=== PATIENT | male | born 1980 | race Caucasian/White ===

== ENCOUNTER → 2016-04-08 | Outpatient (CLI) | payer OTHER ==
[2016-01-12 23:12] VITALS: BP 130/81
== END ==
LOC: LAB 15:21
DX: Z98.52 Vasectomy status (principal)

== ENCOUNTER → 2016-05-07 | Outpatient (CLI) | payer OTHER ==
[2016-01-12 23:12] VITALS: BP 130/81
== END ==
LOC: LAB 12:19
DX: Z30.2 Encounter for sterilization (principal); Z98.52 Vasectomy status

== ENCOUNTER → 2017-03-01 | Outpatient (CLI) | payer OTHER ==
[2016-01-12 23:12] VITALS: BP 130/81
[2017-03-01 12:32] LABS: ALBUMIN 3.6 g/dL (3.5-5.0); BUN/CREATININE RATIO 14.2 (6.0-26.0); CALCIUM 9.8 mg/dL (8.4-10.2); POTASSIUM 4.3 mmol/L (3.6-5.0); TOTAL BILIRUBIN 0.7 mg/dL (0.2-1.3); TOTAL PROTEIN 6.8 g/dL (6.3-8.2)
[2017-03-01 12:55] LABS: HEMATOCRIT 45.6 % (42.0-52.0); HEMOGLOBIN 15.1 g/dL (13.5-18.0); MEAN CELL VOLUME 83 fl (78-100); MEAN CORPUSCULAR HEMOGLOBIN 28 pg (27-31); MEAN CORPUSCULAR HGB CONC 33 g/dL (33-37); MEAN PLATELET VOLUME 9.7 fl (7.4-10.4); PLATELET COUNT 242 K/mm3 (130-400); RED BLOOD COUNT 5.47 M/mm3 (4.20-5.60); RED CELL DISTRIBUTION WIDTH 12.2 % (11.5-14.5); WHITE BLOOD COUNT 7.6 K/mm3 (4.8-10.8)
[2017-03-01 13:41] LABS: LYMPHOCYTE 22 % (20-51); MONOCYTE 5 % (3-10); NEUTROPHILS 71 % (42-75)
== END ==
LOC: RAD 12:01
PROVIDERS: Nurse Practitioner Family
DX: R05 Cough (principal); R51 Headache; R50.9 Fever, unspecified; R63.4 Abnormal weight loss

== ENCOUNTER → 2017-03-15 | Outpatient (CLI) | payer OTHER ==
[2016-01-12 23:12] VITALS: BP 130/81
== END ==
LOC: LAB 14:37
DX: E05.90 Thyrotoxicosis, unspecified without thyrotoxic crisis or storm (principal); R63.4 Abnormal weight loss

== ENCOUNTER 2017-10-01 08:11 | Emergency (ER) | payer OTHER ==
[~2017-10-01] VITALS: Ht 170.2 cm; Wt 70.5 kg
[2017-10-01] MEDS ORDERED: ATENOLOL25 MG PO (08:20)
[2017-10-01] MEDS ORDERED: PROPYLTHIOURACI50 M1 PO (08:20)
[2017-10-01] MEDS ORDERED: CYCLOBENZAPRINE10 M1 PO (09:35)
[2017-10-01] MEDS ORDERED: NORCO 325 MG-51 TA1 PO (09:35)
[2017-10-01 09:40] VITALS: BP 148/68
== END 2017-10-01 09:39 | disposition home or self-care (01) ==
LOC: ED 08:11
DX: M54.6 Pain in thoracic spine (principal); M62.830 Muscle spasm of back; R51 Headache; I10 Essential (primary) hypertension; F17.220 Nicotine dependence, chewing tobacco, uncomplicated; Z79.899 Other long term (current) drug therapy; V86.55XA Driver of 3- or 4- wheeled all-terrain vehicle (ATV) injured in nontraffic accident, initial encounter; Y92.838 Other recreation area as the place of occurrence of the external cause